=== PATIENT | female | born 1970 | race Caucasian/White ===

== ENCOUNTER 2019-05-21 06:59 | Outpatient (CLI) | payer OTHER, SELFPAY ==
--- NOTE | 2019-05-28 11:43 | SLEEP_ITS ---
Home Sleep Test DATE OF STUDY: 05/21/2019 ORDERING PHYSICIAN: Jason Connell D.O. REASON FOR THE STUDY: Hypersomnia. HISTORY: This patient is a 48-year-old female, 5 feet 7 inches tall, weighing 260 pounds with a body mass index of 40.7. She wakes up frequently at night. This can happen after only 1 or 2 hours of sleep. When she is awake, she will watch television for 4 hours. She has had difficulty with sleeping for over 20 years. There is no family history that she is aware of. She rarely awakens from sleep with short of breath. She occasionally awakens at night with heartburn, belching, or coughing. She does not mention whether or not she snores, but rarely she snores loudly enough that others complain about it. She frequently has trouble sleeping with a cold. She does not gasp for breath at night. She rarely has breathing problems witnessed by others. She rarely sweats excessively at night. She occasionally notices her heart pounding irregularly at night. She constantly falls asleep during the day, never involuntarily, and never while driving. She occasionally falls asleep with laughing or crying. She does not have loss of muscle tone with strong emotion. She rarely has daytime difficulty due to excessive sleepiness, works as a registered behavior nail technician. She does not have paralysis on waking or falling asleep. She does not have vivid dreamlike scenes upon awakening or falling asleep. She is never afraid to go to sleep. She occasionally has nightmares. She occasionally remembers her dreams. She frequently has racing thoughts, feelings of sadness, depression, anxiety, and she frequently has muscular tension. She constantly notices parts of her body jerking. She occasionally kicks at night and has crawly achy feelings in her legs. She does not have morning jaw pain. She occasionally grinds her teeth at night. She frequently is bothered by pain during the day and is awakened with pain at night. She constantly wakes up feeling stiff in the morning with sore achy muscles and neck and spine pain. She has feelings of panic, memory problems, insomnia, concentration difficulties, depression, nightmares, bowel disturbances, and headache. She normally goes to bed at 11 p.m., falling asleep within 10 minutes, waking 3 times at night and will stay awake for 2-3 hours. During this time, she will go to the bathroom or use her phone, sometimes watch television. She wakes in the morning at 6 a.m. She gets an estimated 4 or 5 hours of sleep at night. On the weekends, she stays awake until 0:30 a.m. and will still wake at 6 a.m. She sometimes takes naps. She is not refreshed after a short nap. She is usually drowsy in the morning for 3 hours or longer. MEDICAL COMORBIDITIES: Chest pain, depression, diabetes, GERD. MEDICATIONS: 1. Dulaglutide 0.75 mg per 0.5 mL, 1.5 mg injected subcutaneously weekly. 2. Omeprazole 20 mg daily. 3. Buspirone 7.5 mg b.i.d. 4. Escitalopram 20 mg daily. 5. Glargine insulin per instructions daily. HABITS: Never smoked tobacco. Caffeine 8 cans per day. No alcohol. DESCRIPTION OF THE STUDY: On the [place] Sleepiness Scale, her score is 12, elevated. This test was conducted as an unattended home sleep test using 4 channel system including respiratory effort channel, snoring channel, oxygen saturation channel, and heart rate channel. The study was scored using [facility] guidelines. Duration of the study was 8 hours 6 minutes. The apnea-hypopnea index is 15. Oxygen desaturation index is 15. There were 2 apneas, 1 was obstructive and 1 was central. She had 119 hypopneas. There were 190 snoring events and 120 desaturations. She spent 60 minutes, 12% of the study below 88% saturation. The lowest desaturation was 79%. Her average
== END 2019-05-21 07:00 | disposition home or self-care (01) ==
LOC: ANHCSM 07:00
PROVIDERS: PCP Family Medicine; Visit Provider Internal Medicine Cardiovascular Disease
DX: G47.10 Hypersomnia, unspecified (principal); G47.33 Obstructive sleep apnea (adult) (pediatric); Z68.41 Body mass index [BMI] 40.0-44.9, adult; E11.9 Type 2 diabetes mellitus without complications; F32.9 Major depressive disorder, single episode, unspecified; E78.5 Hyperlipidemia, unspecified; K21.9 Gastro-esophageal reflux disease without esophagitis
CPT/HCPCS: 95806

== ENCOUNTER 2019-07-08 16:20 | Outpatient (CLI) | payer OTHER, SELFPAY ==
--- NOTE | ~2019-07-08 | XR_ITS ---
EXAMINATION: XR ribs BI 3V w CXR 2V INDICATION: Pleurodynia TECHNIQUE: PA and lateral views of the chest and 3 views of the bilateral ribs were obtained. COMPARISON: 12/06/2018 FINDINGS: The lungs are free of acute opacities. There is no pleural effusion or pneumothorax. The ca rdiomediastinal silhouette is normal. Surgical clips in the right upper quadrant are likely from prio r cholecystectomy. There is moderate thoracic spondylosis. No displaced rib fracture is identified. T here is chronic widening of the acromioclavicular joints which could reflect a distal clavicle resect ion. IMPRESSION: 1. No acute cardiopulmonary abnormality or evidence of displaced rib fracture. Reviewed, dictated and finalized at location A.
== END 2019-07-08 16:21 | disposition home or self-care (01) ==
PROVIDERS: PCP Family Medicine; Visit Provider Physician Assistant Medical
DX: R07.81 Pleurodynia (principal)
CPT/HCPCS: 71046; 71110

== ENCOUNTER 2019-07-23 17:37 | Outpatient (CLI) | payer OTHER, SELFPAY ==
--- NOTE | ~2019-07-23 | CT_ITS ---
EXAMINATION: CT abdomen pelvis w con EXAM DATE: 07/23/2019 17:34 INDICATION: Abdominal pain. TECHNIQUE: Spiral CT of the abdomen and pelvis was performed following intravenous injection of 100 m L Omnipaque 350. Axial, coronal and sagittal images were reviewed. The dose-length product (DLP) fo r this examination was 1663.63 mGy-cm. The exposure was tailored according to patient size (auto mA exposure control), and iterative reconstruction (ASIR) was used as additional dose reduction techniqu e. There is no prior study for comparison. FINDINGS: There is hepatic steatosis without suspicious focal lesion identified. Spleen, adrenal glan ds, pancreas are unremarkable. There are cholecystectomy clips. Portal and splenic veins are patent . Kidneys enhance symmetrically. There is no hydronephrosis. Lobular renal contours bilaterally. T he uterus and ovaries are unremarkable, no adnexal mass. The bladder is unremarkable. There is no r etroperitoneal or pelvic lymphadenopathy. The appendix is normal. The stomach and small bowel are unremarkable. There is expected amount of c olonic stool. No free intraperitoneal gas. The heart is normal in size. There are no pericardial or pleural effusions. The lung bases are unremarkable. There are no osteoblastic or osteolytic les ions identified. Chronic L5 bilateral spondylolysis with grade 2 anterolisthesis L5 on S1, moderate t o severe disc disease at this level. IMPRESSION: 1. No acute intra-abdominal findings. 2. Chronic L5 spondylolysis, grade 2 anterolisthesis. 3. Hepatic steatosis. Reviewed, dictated and finalized at location A.
[2019-07-23 17:28] LABS: Estimated Glomerular Filt Rate > 60
[2019-07-23 17:47] LABS: Basophils Absolute Auto 0.1 K/mm3 (0.0-0.1); Basophils Percent Auto 0.7 % (0.2-1.2); Eosinophils Absolute Auto 0.2 K/mm3 (0-0.3); Eosinophils Percent Auto 1.3 % (0-4.4); Hematocrit 44.6 % (37.0-47.0); Hemoglobin 14.9 g/dL (12.0-15.0); Immature Granulocyte Absolute 0.03 K/mm3 (0.00-0.031); Immature Granulocyte Percent A 0.2 % (0-0.5); Lymphocytes Absolute Auto 2.79 K/mm3 (0.9-3.2); Lymphocytes Percent Auto 20.6 % (18.3-44.2); Mean Corpuscular HGB Conc 33.4 g/dl (32-36); Mean Corpuscular Hemoglobin 28.2 pg (26-34); Mean Corpuscular Volume 84.3 fl (80-100); Mean Platelet Volume 12.1 fl (7.4-10.4); Monocytes Absolute Auto 1.1 K/mm3 (0.1-0.6); Monocytes Percent Auto 7.9 % (2.6-8.5); Neutrophils Absolute Auto 9.4 K/mm3 (1.3-6.7); Neutrophils Percent Auto 69.3 % (45.5-73.1); Platelet Count Result 225 k/mm3 (150-375); Red Blood Count 5.29 M/mm3 (4.2-5.4); Red Cell Distribution Width 13.2 % (11.5-14.5); White Blood Count 13.5 K/mm3 (4.5-10.0)
[2019-07-23 18:00] LABS: Alanine Aminotransferase 19 U/L (4-35); Alkaline Phosphatase 121 U/L (38-126); Amylase 45 U/L (30-110); Aspartate Amino Transferase 21 U/L (14-36); Bilirubin,Total 0.6 mg/dL (0.2-1.3); Blood Urea Nitrogen 11 mg/dL (7-17); Calcium 8.7 mg/dL (8.4-10.2); Carbon Dioxide 28 mmol/L (22-30); Chloride 97 mmol/L (98-107); Estimated Glomerular Filt Rate > 60; Glucose 290 mg/dL (65-105); Lipase 40 U/L (23-300); Potassium 3.9 mmol/L (3.4-5.0); Sodium 131 mmol/L (137-145)
== END 2019-07-23 17:38 | disposition home or self-care (01) ==
PROVIDERS: PCP Family Medicine; Visit Provider Nurse Practitioner Family
DX: R10.9 Unspecified abdominal pain (principal); M47.816 Spondylosis without myelopathy or radiculopathy, lumbar region; M43.16 Spondylolisthesis, lumbar region; K76.0 Fatty (change of) liver, not elsewhere classified
CPT/HCPCS: 36415; 74177; 80053; 82150; 83690; 85025; Q9967

== ENCOUNTER 2019-08-06 16:06 | Outpatient (CLI) | payer OTHER, SELFPAY ==
[2019-08-06 17:09] LABS: Blood Urea Nitrogen 10 mg/dL (7-17); Carbon Dioxide 28 mmol/L (22-30); Chloride 98 mmol/L (98-107); Estimated Glomerular Filt Rate > 60; Glucose 298 mg/dL (65-105); Potassium 3.9 mmol/L (3.4-5.0); Sodium 132 mmol/L (137-145)
== END 2019-08-06 16:07 | disposition home or self-care (01) ==
PROVIDERS: PCP Family Medicine; Visit Provider Nurse Practitioner Family
DX: D72.829 Elevated white blood cell count, unspecified (principal); R79.89 Other specified abnormal findings of blood chemistry; E87.1 Hypo-osmolality and hyponatremia
CPT/HCPCS: 36415; 80048

== ENCOUNTER 2019-08-13 15:03 | Outpatient (CLI) | payer OTHER, SELFPAY ==
[2019-08-13 16:19] LABS: Basophils Absolute Auto 0.1 K/mm3 (0.0-0.1); Basophils Percent Auto 1.1 % (0.2-1.2); Eosinophils Absolute Auto 0.2 K/mm3 (0-0.3); Eosinophils Percent Auto 1.7 % (0-4.4); Hematocrit 44.9 % (37.0-47.0); Immature Granulocyte Absolute 0.05 K/mm3 (0.00-0.031); Immature Granulocyte Percent A 0.4 % (0-0.5); Lymphocytes Percent Auto 26.4 % (18.3-44.2); Mean Corpuscular HGB Conc 33.4 g/dl (32-36); Mean Corpuscular Hemoglobin 28.8 pg (26-34); Mean Corpuscular Volume 86.3 fl (80-100); Mean Platelet Volume 12.8 fl (7.4-10.4); Monocytes Percent Auto 8.3 % (2.6-8.5); Neutrophils Absolute Auto 7.1 K/mm3 (1.3-6.7); Neutrophils Percent Auto 62.1 % (45.5-73.1); Platelet Count Result 236 k/mm3 (150-375); Red Cell Distribution Width 13.4 % (11.5-14.5); White Blood Count 11.4 K/mm3 (4.5-10.0)
== END 2019-08-13 15:04 | disposition home or self-care (01) ==
PROVIDERS: PCP Family Medicine; Visit Provider Nurse Practitioner Family
DX: R10.9 Unspecified abdominal pain (principal)
CPT/HCPCS: 36415; 85025

== ENCOUNTER 2019-09-07 00:29 | Outpatient (CLI) | payer OTHER, SELFPAY ==
[2019-09-07 16:19] LABS: SARS-CoV-2 RNA PCR Negative
== END 2019-09-07 00:30 | disposition home or self-care (01) ==
LOC: ANHCOVIDDT 00:30
PROVIDERS: PCP Family Medicine; Visit Provider Internal Medicine Gastroenterology
DX: Z01.818 Encounter for other preprocedural examination (principal); Z11.59 Encounter for screening for other viral diseases
CPT/HCPCS: 87635; C9803; U0003

== ENCOUNTER 2019-09-10 00:59 | Day surgery (SDC) | payer OTHER, SELFPAY ==
[2019-09-06 14:44] VITALS: BMI 42.3
--- NOTE | 2019-09-10 08:19 | WPDANESEPPF ---
Anes - Initial Pre Proc Eval Procedure: Operation Date: 09/10/19 12:30 Proposed Procedures p Esophagogastroduodenoscopy & Screening Colonoscopy - Maikel Schultz MD Date/Time: 09/10/19 08:19 Surgeon: Maikel Schultz MD Pre Op Diagnosis: Nausea & Vomiting Patient Data Age: 48 Gender: F Height: 1.7 m Weight: 122.7 kg Allergies Allergy/AdvReac Type Severity Reaction Status Date / Time No Known Allergies Allergy Verified 08/30/19 13:08 Home Medications Medication Instructions Recorded Confirmed Type insulin glargine 100 unit/mL (3 100 unit SUB-Q DAILY 04/22/19 09/06/19 History mL) subcutaneous pen escitalopram oxalate 20 mg tablet 20 mg PO DAILY #30 tablet 05/20/19 09/06/19 Rx tizanidine 2 mg tablet 2 mg PO TID PRN #14 tablet 07/08/19 09/06/19 Rx omeprazole 20 mg capsule,delayed 20 mg PO DAILY #90 cap 07/21/19 09/06/19 Rx release ondansetron HCl 4 mg tablet 4 mg PO Q8H PRN #30 tablet 07/24/19 09/06/19 Rx bupropion HCl 300 mg 24 hr tablet, 300 mg PO QAM #30 tablet 08/09/19 09/06/19 Rx extended release peg 3350-electrolytes 236 240 ml PO Q10M #4000 ml 09/06/19 Rx gram-22.74 gram-6.74 gram-5.86 gram solution Patient hx anesthesia problems: none Family hx anesthesia problems: none PMFSH Past Medical History Medical History (Updated 09/10/19 @ 08:20 by Anshul Narayan MD) Abdominal pain Anxiety and depression Colon cancer screening Diabetes Gastroesophageal reflux disease Headache Migraine Nausea and vomiting in adult Obesity RADHA (obstructive sleep apnea) Tension type headache Surgical History Surgical History H/O excision of ganglion cyst H/O shoulder surgery History of appendectomy History of tonsillectomy Hx of cholecystectomy Social History Social History Smoking status: Never smoker Alcohol intake: current Gender identity (if verbalized by the patient): Female Anes - Eval Final PreProcedure Day of Procedure 09/10/19 08:19 Patient weight: obese Heart: regular rate and rhythm Lungs: clear to auscultation and normal air movement Airway: Mallampati scale class II Neurological: alert and oriented Last oral intake: >/= 8 hours ASA classification: III Emergent: no Anesthetic plan: proceed Anesthesia type and monitoring: general GIVS Informed Consent: The patient's anesthetic plan and its attendant risks and benefits were discussed with the patient/family/POA. Questions were solicited and answers provided to the satisfaction of the patient/family/POA.
[2019-09-10 11:53] VITALS: BP 125/84; PULSE 101; RESP 16; TEMP 37; O2SAT 97
[2019-09-10] MEDS: LACTATED RINGERS 1,000 ML 150 ML IV CONT (12:10)
[2019-09-10 12:12] LABS: Glucose Point of Care 282 (65-105)
--- NOTE | 2019-09-10 13:17 | WPDHPUPDATE1 ---
History and Physical Update Update Date/Time: 09/10/19 13:17 History and Physical has been reviewed, including an updated exam of the patient. There are NO changes in the patient's condition. Risks, benefits, and alternatives have been discussed and questions answered. Patient agrees to proceed with procedure.
[2019-09-10] MEDS: BENZOCAINE (*SP) 60 ML SPRAY CAN (HURRICAINE) 1 SPRAY MUCOUS MEM (13:32)
--- NOTE | 2019-09-10 13:43 | SUR.OPER ---
[id number] UPDATED FAMILY (KARMEN) TAKING PATIENT TO PROCEDURE ROOM
[2019-09-10 13:57] VITALS: BP 97/64; PULSE 83; RESP 20; O2SAT 95
[2019-09-10 14:07] VITALS: BP 99/64; PULSE 84; RESP 22; O2SAT 95
[2019-09-10 14:07] LABS: Glucose Point of Care 217 (65-105)
[2019-09-10 14:17] VITALS: BP 92/59; PULSE 79; RESP 24; O2SAT 96
== END 2019-09-10 14:35 | disposition home or self-care (01) ==
PROVIDERS: PCP Family Medicine; Visit Provider Internal Medicine Gastroenterology
PROC: 0DJ08ZZ Inspection of Upper Intestinal Tract, Via Natural or Artificial Opening Endoscopic (ICD-10-PCS; CPT 43235; principal; 2019-09-10 12:30)
DX: Z12.11 Encounter for screening for malignant neoplasm of colon (principal); K64.8 Other hemorrhoids; K29.50 Unspecified chronic gastritis without bleeding; E11.9 Type 2 diabetes mellitus without complications; G47.33 Obstructive sleep apnea (adult) (pediatric); F41.8 Other specified anxiety disorders; K21.9 Gastro-esophageal reflux disease without esophagitis; Z79.4 Long term (current) use of insulin; E66.01 Morbid (severe) obesity due to excess calories; Z68.41 Body mass index [BMI] 40.0-44.9, adult
CPT/HCPCS: 45378; 43239; 88305; J2704; J7120

== ENCOUNTER 2019-09-13 11:55 | Outpatient (CLI) | payer OTHER, SELFPAY ==
[2019-09-13 13:33] LABS: Basophils Absolute Auto 0.1 K/mm3 (0.0-0.1); Eosinophils Absolute Auto 0.3 K/mm3 (0-0.3); Eosinophils Percent Auto 2.5 % (0-4.4); Hematocrit 44.8 % (37.0-47.0); Hemoglobin 15.2 g/dL (12.0-15.0); Immature Granulocyte Absolute 0.04 K/mm3 (0.00-0.031); Immature Granulocyte Percent A 0.4 % (0-0.5); Lymphocytes Absolute Auto 3.28 K/mm3 (0.9-3.2); Lymphocytes Percent Auto 31.3 % (18.3-44.2); Mean Corpuscular HGB Conc 33.9 g/dl (32-36); Mean Corpuscular Hemoglobin 28.1 pg (26-34); Mean Platelet Volume 12.6 fl (7.4-10.4); Monocytes Absolute Auto 0.7 K/mm3 (0.1-0.6); Neutrophils Absolute Auto 6.1 K/mm3 (1.3-6.7); Neutrophils Percent Auto 57.8 % (45.5-73.1); Platelet Count Result 250 k/mm3 (150-375); Red Cell Distribution Width 13.2 % (11.5-14.5); White Blood Count 10.5 K/mm3 (4.5-10.0)
== END 2019-09-13 11:56 | disposition home or self-care (01) ==
PROVIDERS: PCP Family Medicine; Visit Provider Nurse Practitioner Family
DX: D72.829 Elevated white blood cell count, unspecified (principal)
CPT/HCPCS: 36415; 85025

== ENCOUNTER 2019-10-03 13:56 | Outpatient (CLI) | payer OTHER, SELFPAY ==
[2019-10-03 14:24] LABS: Basophils Absolute Auto 0.1 K/mm3 (0.0-0.1); Basophils Percent Auto 0.8 % (0.2-1.2); Eosinophils Absolute Auto 0.3 K/mm3 (0-0.3); Eosinophils Percent Auto 2.4 % (0-4.4); Hematocrit 44.9 % (37.0-47.0); Hemoglobin 15.2 g/dL (12.0-15.0); Immature Granulocyte Absolute 0.05 K/mm3 (0.00-0.031); Immature Granulocyte Percent A 0.4 % (0-0.5); Lymphocytes Absolute Auto 3.31 K/mm3 (0.9-3.2); Lymphocytes Percent Auto 29.2 % (18.3-44.2); Mean Corpuscular HGB Conc 33.9 g/dl (32-36); Mean Corpuscular Hemoglobin 28.6 pg (26-34); Mean Corpuscular Volume 84.6 fl (80-100); Mean Platelet Volume 12.4 fl (7.4-10.4); Monocytes Absolute Auto 0.8 K/mm3 (0.1-0.6); Monocytes Percent Auto 7.4 % (2.6-8.5); Neutrophils Absolute Auto 6.8 K/mm3 (1.3-6.7); Neutrophils Percent Auto 59.8 % (45.5-73.1); Platelet Count Result 236 k/mm3 (150-375); Red Blood Count 5.31 M/mm3 (4.2-5.4); Red Cell Distribution Width 13.4 % (11.5-14.5); White Blood Count 11.3 K/mm3 (4.5-10.0)
[2019-10-03 15:06] LABS: Alanine Aminotransferase 23 U/L (4-35); Albumin Level 4.2 g/dL (3.5-5.1); Alkaline Phosphatase 135 U/L (38-126); Aspartate Amino Transferase 26 U/L (14-36); Bilirubin,Total 0.7 mg/dL (0.2-1.3); Blood Urea Nitrogen 17 mg/dL (7-17); Calcium 9.2 mg/dL (8.4-10.2); Carbon Dioxide 26 mmol/L (22-30); Chloride 95 mmol/L (98-107); Estimated Glomerular Filt Rate > 60; Glucose 294 mg/dL (65-105); Sodium 133 mmol/L (137-145)
[2019-10-03 16:00] LABS: Erythrocyte Sedimentation Rate 15 mm/hr (0-20)
== END 2019-10-03 13:57 | disposition home or self-care (01) ==
LOC: ANHLAB 13:57
PROVIDERS: PCP Family Medicine; Visit Provider Internal Medicine Hematology & Oncology
DX: D72.829 Elevated white blood cell count, unspecified (principal)
CPT/HCPCS: 36415; 80053; 85025; 85652; 86140; 88184

== ENCOUNTER 2020-02-18 07:36 | Outpatient (RCR) | payer OTHER, SELFPAY ==
[2020-01-13 12:10] VITALS: BMI 40.8
== END 2020-03-30 14:41 | disposition home or self-care (01) ==
LOC: ANHWOC 07:36
PROVIDERS: PCP Family Medicine; Visit Provider Family Medicine
DX: L03.90 Cellulitis, unspecified (principal); V29.9XXA Motorcycle rider (driver) (passenger) injured in unspecified traffic accident, initial encounter
CPT/HCPCS: 99211; 99212; 99213; G0463

== ENCOUNTER → 2020-04-07 15:34 | Outpatient (CLI) | payer OTHER, SELFPAY ==
--- NOTE | ~2020-04-07 | XR_ITS ---
EXAMINATION:XR_CERV2-3V_CR DATE: 04/07/2020 16:42 INDICATION: Neck pain TECHNIQUE: AP, lateral, lateral swimmers and odontoid views of the cervical spine are provided. COMPARISON: None FINDINGS: There is 1 mm of anterolisthesis of C5 on C6. The odontoid is intact. No fracture is identi fied. The vertebral body heights are normal. There is mild loss of intervertebral disc space height a t C6-7 and C7-T1. Small degenerative osteophytes project from the anterior endplates of multiple vert ebral bodies. Prevertebral soft tissues are normal. IMPRESSION: 1. Mild cervical spondylosis without acute findings. Reviewed, dictated and finalized at location A. LOGIST
--- NOTE | ~2020-04-07 | XR_ITS ---
EXAMINATION: XR shoulder RT min 2V DATE: 04/07/2020 16:42 INDICATION: Right shoulder pain. TECHNIQUE: 4 views of right shoulder were obtained. COMPARISON: Chest 2 views 03/23/2015 FINDINGS: There are changes of distal right clavicle resection. Bone alignment is normal. No fracture . The glenohumeral joint is normal. IMPRESSION: 1. No etiology for the patient's symptoms. Reviewed, dictated and finalized at location B. DOWN
== END ==
PROVIDERS: PCP Family Medicine; Visit Provider Nurse Practitioner Family
DX: M25.511 Pain in right shoulder (principal); M47.892 Other spondylosis, cervical region
CPT/HCPCS: 72040; 73030

== ENCOUNTER 2020-04-16 14:38 | Outpatient (CLI) | payer OTHER, SELFPAY ==
[2020-04-16 14:53] LABS: Basophils Absolute Auto 0.1 K/mm3 (0.0-0.1); Eosinophils Absolute Auto 0.2 K/mm3 (0-0.3); Eosinophils Percent Auto 2.2 % (0-4.4); Hematocrit 47.9 % (37.0-47.0); Hemoglobin 15.8 g/dL (12.0-15.0); Immature Granulocyte Absolute 0.04 K/mm3 (0.00-0.031); Immature Granulocyte Percent A 0.4 % (0-0.5); Lymphocytes Absolute Auto 2.98 K/mm3 (0.9-3.2); Lymphocytes Percent Auto 30.5 % (18.3-44.2); Mean Corpuscular Hemoglobin 26.8 pg (26-34); Mean Corpuscular Volume 81.2 fl (80-100); Mean Platelet Volume 12.2 fl (7.4-10.4); Monocytes Absolute Auto 0.7 K/mm3 (0.1-0.6); Monocytes Percent Auto 6.8 % (2.6-8.5); Neutrophils Absolute Auto 5.8 K/mm3 (1.3-6.7); Neutrophils Percent Auto 59.1 % (45.5-73.1); Platelet Count Result 249 k/mm3 (150-375); Red Cell Distribution Width 13.8 % (11.5-14.5); White Blood Count 9.8 K/mm3 (4.5-10.0)
== END 2020-04-16 14:39 | disposition home or self-care (01) ==
LOC: ANHLAB 14:39
PROVIDERS: PCP Family Medicine; Visit Provider Internal Medicine Hematology & Oncology
DX: D72.829 Elevated white blood cell count, unspecified (principal)
CPT/HCPCS: 36415; 85025

== ENCOUNTER → 2020-04-25 07:26 | Outpatient (CLI) | payer OTHER, SELFPAY ==
[2020-04-25 16:04] LABS: Influenza Control Positive
[2020-04-26 00:17] LABS: SARS-CoV-2 RNA PCR Positive
== END ==
PROVIDERS: PCP Family Medicine; Visit Provider Nurse Practitioner Family
DX: U07.1 COVID-19 (principal); J06.9 Acute upper respiratory infection, unspecified
CPT/HCPCS: 87804; C9803; U0003; U0005

== ENCOUNTER → 2020-07-23 15:33 | Outpatient (CLI) | payer OTHER, SELFPAY ==
--- NOTE | ~2020-07-23 | XR_ITS ---
EXAMINATION: XR shoulder RT min 2V DATE: 07/23/2020 16:19 INDICATION: Right shoulder pain. TECHNIQUE: 4 views of right shoulder were obtained. COMPARISON: Right shoulder radiographs 04/07/2020 FINDINGS: Bone alignment is normal. There is an oblique fracture of the base of the acromion with 5 m m distraction. There are changes of distal clavicle resection. Glenohumeral joint is normal. IMPRESSION: 1. Oblique fracture of the base of the acromion. Reviewed, dictated and finalized at location A.
== END ==
PROVIDERS: Visit Provider Nurse Practitioner Family
DX: S42.121D Displaced fracture of acromial process, right shoulder, subsequent encounter for fracture with routine healing (principal); X58.XXXD Exposure to other specified factors, subsequent encounter
CPT/HCPCS: 73030

== ENCOUNTER 2021-04-28 07:48 | Outpatient (CLI) | payer OTHER, SELFPAY ==
--- NOTE | 2021-05-03 12:57 | WPDSLEEPSTUD ---
Sleep Study Date of Study: 04/28/21 Ordering Provider: Jaci Swann MD Interpreting Physician: Jaci Swann MD Sleep Study Type: Split Polysomnogram Height: 1.7 m Weight: 131.542 kg Body Mass Index: 45.4 Neck Circumference (inches): 16.5 [place]: 11 Reason for Sleep Study Known RADHA, persistent excessive daytime sleepiness, abnormal overnight oximetry; oxygen desaturation index 36 overnight oximetry; she presents for a repeat titration. * HST 05/21/19 moderate obstructive sleep apnea with deep sustained desaturation to 79%, frequent snoring, and 1 hour spent below 88% saturation. Sleep History Ruby Murray is a 50 year old female with obstructive sleep apnea syndrome who has been using APAP 8-20 cm. She switch insurance companies, and has had problems getting a comfortable mask, has tried a nasal nasal mask and Alexander her 's fullface mask. and time she has days of very poor sleep. She does not awaken from sleep feeling short of breath. She occasionally wakes at night with heartburn, belching or coughing. She occasionally snores and rarely is loud enough that others complain about it. She frequently has trouble sleeping with a cold. She rarely wakes up gasping for breath at night. She frequently has breathing problems at night observed by others. She occasionally sweats excessively at night and occasionally notices her heart pounding or beating irregularly at night. She frequently falls asleep during the day, occasionally involuntarily but never while driving. She never loses muscle tone with strong emotion. She does not have daytime difficulties due to excessive sleepiness. She does not feel paralyzed on waking or falling asleep. She rarely has vivid dreamlike scenes upon awakening or falling asleep. She does not feel afraid to go to sleep. She rarely has nightmares, rarely remembers her dreams. She frequently has racing thoughts. She occasionally feels sad depressed. She frequently has anxiety and muscular tension. She frequently notices parts of her body jerking. She occasionally kicks at night. She rarely has crawling and aching feelings in her legs. She occasionally has leg pain at night. She does not have morning jaw pain. She rarely grinds her teeth at night. She frequently is bothered by pain during the day and frequently awakened by pain at night. She frequently wakes up feeling stiff in the morning with sore achy muscles and pain in neck and spine. Normal bedtime is 1:00 a.m. taking 10 minutes to fall asleep typically in the recliner. She looks the phone until she gets very tired. She wakes 2 or 3 times during the night. She estimates getting 3-4 hours of sleep per night. She wakes the morning at 9:00 a.m.. On the weekends her schedule is similar waking up a little later at 10:00 a.m.. When she wakes at night she may stay stay awake for a few hours at a time. pain in her shoulder keeps her awake. She naps during the day. Short naps are not refreshing. She is drowsy after waking for an hour or longer. She feels better in the evening compared to earlier in the day. Habits: No tobacco. Caffeine 8 cans a day. No alcohol or recreational drugs. PMFSH Past Medical History Medical History Abdominal pain Anxiety and depression BMI 45.0-49.9, adult Colon cancer screening Diabetes Fracture of acromial end of right clavicle Gastroesophageal reflux disease Headache Migraine Morbidly obese Nausea and vomiting in adult Obesity RADHA (obstructive sleep apnea) Tension type headache Surgical History Surgical History H/O excision of ganglion cyst H/O shoulder surgery History of appendectomy History of tonsillectomy Hx of cholecystectomy Family History Family History Father Cerebrovascular accident Diabetes mellitus Hypertension Atr
[2021-05-03 15:12] VITALS: BMI 45.4
== END 2021-04-29 07:51 | disposition home or self-care (01) ==
LOC: ANHCSM 07:48
PROVIDERS: PCP Family Medicine; Visit Provider Internal Medicine Critical Care Medicine
DX: G47.33 Obstructive sleep apnea (adult) (pediatric) (principal)
CPT/HCPCS: 95811

== ENCOUNTER 2021-08-03 16:19 | Outpatient (CLI) | payer OTHER, SELFPAY ==
--- NOTE | ~2021-08-03 | XR_ITS ---
XR chest 2V 08/03/2021 16:37 Indication: Cough. Procedure: 2 view chest Comparison: Comparison to multiple prior studies sequentially, with oldest reviewed study dated 06/2015. Findings: Heart size normal. No focal air space disease, pulmonary edema, pleural effusion or suspect ed pneumothorax. No acute osseous abnormality. There are surgical changes of the right shoulder, part ially visualized. Impression: 1: No acute cardiopulmonary disease. Reviewed, dictated and finalized at location A. Impression: 1: No acute cardiopulmonary disease.
== END 2021-08-03 16:20 | disposition home or self-care (01) ==
PROVIDERS: PCP Family Medicine; Visit Provider Nurse Practitioner Family
DX: R05.9 Cough, unspecified (principal)
CPT/HCPCS: 71046

== ENCOUNTER → 2021-08-13 08:34 | Outpatient (CLI) | payer OTHER, SELFPAY ==
--- NOTE | ~2021-08-13 | XR_ITS ---
EXAMINATION: XR knee RT 2V DATE: 08/13/2021 08:47 INDICATION: Right knee pain. TECHNIQUE: 2 views of right knee standing were obtained. COMPARISON: None. FINDINGS: Bone alignment is normal. No fracture. There is mild tricompartmental osteoarthritis charac terized by marginal osteophytes. No joint space narrowing. No knee joint effusion. IMPRESSION: 1. Mild right knee osteoarthritis. Reviewed, dictated and finalized at location A.
== END ==
PROVIDERS: PCP Family Medicine; Visit Provider Nurse Practitioner Family
DX: M17.11 Unilateral primary osteoarthritis, right knee (principal)
CPT/HCPCS: 73560

== ENCOUNTER 2021-09-16 12:16 | Outpatient (CLI) | payer OTHER, SELFPAY ==
--- NOTE | 2021-09-17 13:36 | WPDPFTINT ---
PFT Procedure Performed PFT Procedure Performed Spirometry with Pre/Post Bronchodilator Plethysmography (Lung Vol) Diffusing Cap (DLCO) Flow Vol Loop PFT Interpretation This is a pulmonary function test with pre and post-bronchodilator spirometry, plethysmography and diffusing capacity. The test was performed and results interpreted in accordance with the 2019 and 2005 ATS/ERS Task Force guidelines respectively using the Global Lung Function Initiative-2012 reference equations. Patient demonstrated good effort and cooperation. Reproducibility criteria were met. The quality of the pre bronchodilator spirometry maneuver was Grade A and post bronchodilator spirometry maneuver was Grade A. Findings: Spirometry: The contour the inspiratory and expiratory flow tracing are normal. The pre bronchodilator FVC is 2.91 L, 77% of% predicted. The pre bronchodilator FEV1 is 2.47 L, 83% predicted. The pre bronchodilator FEV1: FVC ratio was 85%. The post bronchodilator FVC is 2.81 L, representing a 4% decrease. The post bronchodilator FEV1 is 2.46 L, representing no change. The post bronchodilator FEV1: FVC ratio was 88%. Plethysmography: The total lung capacity is 4.50 L, 82% predicted. The functional residual capacity is 1.12 L, 36% predicted. The residual volume is 1.10 L, 56% predicted. Diffusion capacity: The diffusing capacity unadjusted for hemogloin and carboxyhemoglobin is 20.4, 86% predicted. The diffusing capacity adjusted for alveolar volume is 4.79, 108% predicted. Impression: The spirometry is normal without evidence of an obstructive abnormality. There is no significant improvement after inhaling a single dose of albuterol. The total lung capacity is normal with a decreased functional residual capacity and residual volume. This is an abnormal but nonspecific lung volume pattern. The diffusing capacity is normal. There are no prior studies for comparison
== END 2021-09-16 12:17 | disposition home or self-care (01) ==
PROVIDERS: PCP Family Medicine; Visit Provider Nurse Practitioner Family
DX: R05.3 Chronic cough (principal); R06.00 Dyspnea, unspecified
CPT/HCPCS: 94060; 94726; 94729

== ENCOUNTER 2021-10-07 08:11 | Outpatient (CLI) | payer OTHER, SELFPAY ==
--- NOTE | ~2021-10-07 | US_ITS ---
EXAMINATION:US venous doppler LE BI INDICATION:Left leg swelling TECHNIQUE: Multiple grayscale, color flow and Doppler images of the right and left lower extremity de ep venous systems were obtained and reviewed. COMPARISON:No prior studies for comparison. FINDINGS: The common femoral, superficial femoral and popliteal veins demonstrate normal respiratory variation, augmentation and compressibility. Color flow is also seen within the posterior tibial, pe roneal, greater saphenous and profunda veins. IMPRESSION: 1: No lower extremity deep venous thrombosis. Reviewed, dictated and finalized at location L.
== END 2021-10-07 08:12 | disposition home or self-care (01) ==
PROVIDERS: PCP Family Medicine; Visit Provider Nurse Practitioner Family
DX: R60.0 Localized edema (principal)
CPT/HCPCS: 93970

== ENCOUNTER 2021-10-12 07:51 | Outpatient (CLI) | payer OTHER, SELFPAY ==
--- NOTE | ~2021-10-12 | XR_ITS ---
MODIFIED ESOPHAGRAM HISTORY: Dysphagia. TECHNIQUE: Modified barium esophagram was performed on 10/12/2021. I administered fluoroscopy and perf ormed the exam with speech pathologist. Patient was seated for lateral fluoroscopic imaging for blair stion of thin liquids, pudding, solids and quantified amounts, followed by thin liquids in uncontroll ed amounts. This was recorded on tape. A single fluoroscopic spot image was also recorded. The DAP fo r this procedure was 1.382 Gycm2. The amount of fluoroscopy time used during this procedure was 1.6 m inutes. FINDINGS: Oral stage: Adequate function. Pharyngeal stage: Adequate function. Cervical/esophageal stage: Adequate function. IMPRESSION: Patient tolerated regular consistency oral feedings in the upright position. Please kenya elate with speech pathologist findings and specific feeding recommendations. Reviewed, dictated and finalized at location A. IMPRESSION: Patient tolerated regular consistency oral feedings in the upright position. Please correlate with speech pathologist findings and specific feedi ng recommendations.
--- NOTE | 2021-10-14 09:45 | STOPEVAL ---
MODIFIED BARIUM SWALLOW EVALUATION: (completed 10/12/21) Thank you for referring Ruby Murray to [facility].? Attending Provider: LUZ MARIA Camacho fax #[phone] Modified Barium Swallow Evaluation Recent Swallowing History Reports Dysphagia Yes: chronic cough & nasal regurgitation Onset of Dysphagia 1 year History of Dysphagia No Reported Difficult Consistencies Unable to Identify Intake Method Prior to Swallow Oral Evaluation Diet Prior to Swallow Evaluation Regular, Level 7 Liquid Consistency Prior to Swallow Thin (0) Evaluation Consistency Solid Consistency Method of Presentation Spoon Oral Preparatory Symptoms None Oral Phase Symptoms None Pharyngeal Phase Symptoms None Severity of Vallecular Residue None - 0% No Residue Severity of Pyriform Sinus Residue None - 0% No Residue Cervical/Esophageal Symptoms None Mixed Consistency Method of Presentation Spoon Oral Preparatory Symptoms None Oral Phase Symptoms None Pharyngeal Phase Symptoms None Severity of Vallecular Residue None - 0% No Residue Severity of Pyriform Sinus Residue None - 0% No Residue 8 Point Laryngeal Penetration-Aspiration Material Does Not Enter Airway Scale Cervical/Esophageal Symptoms None Pureed Consistency Method of Presentation Spoon Oral Preparatory Symptoms None Oral Phase Symptoms None Pharyngeal Phase Symptoms None Severity of Vallecular Residue None - 0% No Residue Severity of Pyriform Sinus Residue None - 0% No Residue 8 Point Laryngeal Penetration-Aspiration Material Does Not Enter Airway Scale Cervical/Esophageal Symptoms None Thin Uncontrolled 2 Method of Presentation Straw Oral Preparatory Symptoms None Oral Phase Symptoms None Pharyngeal Phase Symptoms None Severity of Vallecular Residue None - 0% No Residue Severity of Pyriform Sinus Residue None - 0% No Residue 8 Point Laryngeal Penetration-Aspiration Material Does Not Enter Airway Scale Cervical/Esophageal Symptoms None Thin Uncontrolled 1 Method of Presentation Cup Oral Preparatory Symptoms None Oral Phase Symptoms None Pharyngeal Phase Symptoms None Severity of Vallecular Residue None - 0% No Residue Severity of Pyriform Sinus Residue None - 0% No Residue 8 Point Laryngeal Penetration-Aspiration Material Does Not Enter Airway Scale Cervical/Esophageal Symptoms None Thin 5 mL Method of Presentation Spoon Oral Preparatory Symptoms None Oral Phase Symptoms None Pharyngeal Phase Symptoms None Severity of Vallecular Residue None - 0% No Residue Severity of Pyriform Sinus Residue None - 0% No Re
== END 2021-10-12 07:52 | disposition home or self-care (01) ==
PROVIDERS: PCP Family Medicine; Visit Provider Physician Assistant
DX: R06.00 Dyspnea, unspecified (principal); R05.9 Cough, unspecified
CPT/HCPCS: 92611

== ENCOUNTER 2021-10-16 08:30 | Outpatient (CLI) | payer OTHER, SELFPAY ==
--- NOTE | 2021-10-16 08:35 | ECHO_ITS ---
Patient Info Name: Ruby Murray Age: 51 years : 1970 Gender: Female Ht: 67 in Wt: 305 lbs BSA: 2.63 m2 HR: 81 bpm BP: 112 / 69 mmHg Technical Quality: Poor Exam Date: 10/16/2021 8:54 AM Exam Location: [facility] Patient Status: Outpatient Admit Date: 10/16/2021 Staff Ordering Physician: Nathaniel Troncoso NP Bursar: Cassandra Estrella RDCS Attending Provider: Nathaniel Troncoso NP Referring Physician: Aba BURNS; Exam Type: CA echo dop color flow w con Study Info Indications - MERA Complete two-dimensional, color flow and Doppler transthoracic echocardiogram is performed with contrast to opacify the left ventricle and to improve the deliniation of the left ventricle endocardial borders. Contrast/Agitated Saline Contrast/Ag. Saline: Definity Amount: 2.00 ml Administered By: Cassandra Estrella [facility] Existing IV Access: No New IV Access: Dorsum of Hand and Left Site Condition: IV removed Reason for Poor Study: patient body habitus Summary 1. Left ventricular chamber dimension is normal. 2. Definity contrast administered improved wall motion interpretation. 3. Left ventricular systolic function is normal, estimated at 60-65%. 4. The left ventricular diastolic function is grade I diastolic dysfunction. 5. No pulmonary hypertension, estimated pulmonary arterial systolic pressure is 24 mmHg. Left Ventricle Definity contrast administered improved wall motion interpretation. Tissue doppler E/e' is not calculated. Left ventricular chamber dimension is normal. Left ventricular systolic function is normal, estimated at 60-65%. The left ventricular diastolic function is grade I diastolic dysfunction. Right Ventricle Right ventricular chamber dimension is normal. Right ventricular systolic function is normal. Left Atria Left atrial chamber dimension is normal. Right Atria Right atrial chamber dimension is normal. Aortic Valve The aortic valve is trileaflet. There is no aortic valve stenosis. There is no aortic valve regurgitation. Pulmonic Valve There is no pulmonic regurgitation. Mitral Valve There is no mitral valve stenosis. There is no mitral valve regurgitation. Tricuspid Valve There is no tricuspid valve regurgitation. No pulmonary hypertension, estimated pulmonary arterial systolic pressure is 24 mmHg. Pericardium/Pleural There is no pericardial effusion. Inferior Vena Cava Normal inferior vena cava with >50% collapse upon inspiration consistent with normal right atrial pressure, 5 mmHg. Aorta The aortic root size at the sinus of Valsalva is normal. Left Ventricular Outflow Tract Name Value Normal LVOT 2D LVOT Diameter 1.99 cm LVOT Doppler LVOT Peak Gradient 5 mmHg LVOT Mean Gradient 3 mmHg LVOT VTI 19.60 cm LVOT VTI/AV VTI Ratio 0.88 LVOT Stroke Volume 61.07 ml LVOT CO 15.28 l/min LVOT CI
[2021-10-16] MEDS: PERFLUTREN LIPID MICROSPHERES 1.5 ML VIAL DILUTED TO 10 ML TOTAL VOLUME IV PUSH (08:45)
== END 2021-10-16 08:31 | disposition home or self-care (01) ==
LOC: ANHCARD 08:32
PROVIDERS: PCP Family Medicine; Visit Provider Nurse Practitioner Family
DX: R60.0 Localized edema (principal); R07.9 Chest pain, unspecified; R06.00 Dyspnea, unspecified; R05.3 Chronic cough
CPT/HCPCS: C8929; Q9957

== ENCOUNTER 2021-10-17 10:50 | Outpatient (CLI) | payer OTHER, SELFPAY ==
--- NOTE | ~2021-10-17 | CT_ITS ---
EXAMINATION: CT diagnostic chest wo con DATE: 10/17/2021 11:16 INDICATION: Cough. Prior Covid infection. TECHNIQUE: Computed tomography (CT) of the chest was performed without intravenous contrast. Automate d exposure control and iterative reconstruction technique were employed. Exam dose: 1029.03 mGy-cm t otal exam DLP. COMPARISON: 08/03/2021 PA and lateral chest /07/2019 CT abdomen pelvis FINDINGS: No pulmonary infiltrate or consolidation or pulmonary mass lesion is detected. Superior segment left lower lobe calcified pulmonary granuloma and left hilar calcified nodes, consis tent with old granulomatous disease. Normal heart size. No pericardial or pleural effusion. No hilar or mediastinal mass lesion or lymphadenopathy is detected. Diffuse hepatic steatosis. Status post cholecystectomy. No adrenal mass lesion is noted. There is a likely persistent lobation at the upper pole left kidney, not significant change sin ce 07/23/2019 CT abdomen pelvis examination. Old healed left third rib fracture Diffuse idiopathic skeletal hyperostosis. Plate and screws of right scapula. IMPRESSION: No pulmonary infiltrate or consolidation Hepatic steatosis Status post cholecystectomy Reviewed, dictated and finalized at Location [facility]. Reviewed, dictated and finalized at location B.
== END 2021-10-17 10:51 | disposition home or self-care (01) ==
PROVIDERS: PCP Family Medicine; Visit Provider Physician Assistant
DX: R06.00 Dyspnea, unspecified (principal); R05.9 Cough, unspecified; K76.0 Fatty (change of) liver, not elsewhere classified; Z90.49 Acquired absence of other specified parts of digestive tract
CPT/HCPCS: 71250

== ENCOUNTER → 2021-11-24 11:09 | Outpatient (CLI) | payer OTHER, SELFPAY ==
--- NOTE | ~2021-11-24 | MM_ITS ---
EXAMINATION: MM screening mildred BI w karl HISTORY: Screening mammogram TECHNIQUE: Craniocaudal and mediolateral oblique 3-D tomosynthesis images were obtained and synthetic 2-D images were generated. CAD analysis was submitted and interpreted. COMPARISON: No prior mammogram is available for comparison at this institution. BREAST PARENCHYMAL COMPOSITION: There are scattered areas of fibroglandular density. FINDINGS: There is no evidence of suspicious mass, calcification, or architectural distortion to sugg est malignancy in either breast. There has been no suspicious interval change. IMPRESSION: 1. No mammographic evidence of malignancy. 2. Recommend routine screening mammography in one year. BIRADS Category 1: Negative Reviewed, dictated and finalized at location A.
== END ==
PROVIDERS: PCP Nurse Practitioner Family; Visit Provider Nurse Practitioner Family
DX: Z12.31 Encounter for screening mammogram for malignant neoplasm of breast (principal)
CPT/HCPCS: 77063; 77067

== ENCOUNTER 2021-12-21 08:01 | Outpatient (CLI) | payer OTHER, SELFPAY ==
--- NOTE | ~2021-12-21 | NM_ITS ---
EXAMINATION: NM cristobal stress w perfusion DATE: 12/21/2021 13:21 INDICATION: Chest pain TECHNIQUE: Rest images were obtained following intravenous administration of 10.8 mCi Tc99m tetrofosm in (Myoview). The patient was infused intravenously with Lexiscan (Regadenoson). Then, 33.8 mCi Tc99m tetrofosmin (Myoview) was administered intravenously, and stress images were obtained in supine posi tion. Repeat post stress images were obtained in the prone position. Data was reconstructed into shor t axis and horizontal and vertical long axis SPECT images. Gated SPECT images were also obtained. COMPARISON: None. FINDINGS: There is decreased activity along the anterior wall on the rest images as well as along por tions of the apical wall of the supine stress images the majority of which normalizes with prone imag ing. There is a residual small region of mild decreased perfusion at the mid anterior wall on the pro ne imaging which was not evident at this location on the supine post stress images suggesting is also artifactual. No definitive perfusion defects to suggest ischemia or infarct. There is normal left ve ntricular chamber size, wall motion and ejection fraction. Left ventricular ejection fraction measur es >70%. IMPRESSION: 1. Normal myocardial perfusion at rest and during stress. 2. Left ventricular ejection fraction measuring >70%. Reviewed, dictated and finalized at location A.
--- NOTE | 2021-12-21 08:37 | EST_ITS ---
Patient Info Name: Ruby Murray Age: 51 years : 1970 Gender: Female Ht: 67 in Wt: 300 lbs BSA: 2.61 m2 Exam Date: 12/21/2021 9:17 AM Exam Location: [facility] Stress Patient Status: Outpatient Admit Date: 12/21/2021 Staff Ordering Physician: Jason Connell DO Attending Provider: Jason Connell DO Exercise Technologist: Marcio Grady RDCS, RT Exercise Physician: Jason Connell DO Exam Type: CA stress cristobal w NM Study Info A regadenoson stress test was performed. Summary 1. 1. Negative lexiscan stress test for ischemic ST changes by ECG criteria. 2. 2. Stable hemodynamics throughout the test. 3. 3. Nuclear scan to follow and will be reported separately. Please correlate with it. 4. 4. Patient informed of the above results. Protocol: Lexiscan Stress ECG Details Stage: REST Duration (min): 3 min : 39 sec HR (bpm): 70 SBP (mmHg): 113 DBP (mmHg): 69 Stage: REST Duration (min): 7 min : 54 sec HR (bpm): 72 SBP (mmHg): 113 DBP (mmHg): 69 Stage: STAGE 1 Duration (min): 1 min : 0 sec HR (bpm): 95 SBP (mmHg): 131 DBP (mmHg): 54 Stage: RECOVERY Duration (min): 1 min : 0 sec HR (bpm): 90 SBP (mmHg): 131 DBP (mmHg): 54 Stage: RECOVERY Duration (min): 2 min : 0 sec HR (bpm): 91 SBP (mmHg): 131 DBP (mmHg): 54 Stage: RECOVERY Duration (min): 3 min : 0 sec HR (bpm): 87 SBP (mmHg): 135 DBP (mmHg): 64 Stage: RECOVERY Duration (min): 3 min : 47 sec HR (bpm): 88 SBP (mmHg): 135 DBP (mmHg): 64 Rest HR: 72 bpm Peak HR: 96 bpm Rest Sys BP: 113 mmHg Peak Sys BP: 135 mmHg Max Pred HR: 167 bpm % Max Pred HR: 57 % Target HR: 142 bpm Max RPP: 12,960 bpm*mmHg Termination Reason: Completed protocol Cardiac Symptoms: Shortness of breath Total Time: 1 min : 0 sec Rest Voss BP: 69 mmHg Peak Voss BP: 64 mmHg Total Dose: 0.4 mg Resting ECG Sinus rhythm, low voltage- diffuse leads. Stress ECG No ST changes. Arrhythmias None. Report Signatures
== END 2021-12-21 08:02 | disposition home or self-care (01) ==
PROVIDERS: PCP Nurse Practitioner Family; Visit Provider Internal Medicine Cardiovascular Disease
DX: R07.9 Chest pain, unspecified (principal)
CPT/HCPCS: 78452; 93017; A9502; J2785

== ENCOUNTER 2022-02-22 09:59 | Outpatient (CLI) | payer OTHER, SELFPAY ==
--- NOTE | ~2022-02-22 | XR_ITS ---
EXAMINATION: UGI AIR CONTRAST W/ ESOPHAGRAM DATE: 06/01/07 09:43:00 INDICATION: Difficulty swallowing. Patient with nausea and weight loss. TECHNIQUE: Thick barium contrast with and without gas effervescent crystals were administered orally. Fluoroscopic images of the esophagus, stomach, and proximal duodenum were obtained in various proje ctions. The hypopharynx was also imaged. Thereafter, overhead images of the thoracic esophagus and ab domen were performed. 47 images. 0.9 minutes of fluoroscopy. FINDINGS: The esophagus is normal in caliber, without mucosal lesions or strictures. There is normal esophagea l peristalsis. There is no hiatal hernia. Gastroesophageal reflux is demonstrated during the examina tion. The hypopharynx is normal. The gastric folds are normal. The proximal duodenum is also normal in appearance. IMPRESSION: 1. Gastroesophageal reflux. Reviewed, dictated and finalized at location A. CCO HANGER IMPRESSION: 1. Gastroesophageal reflux.
== END 2022-02-22 10:00 | disposition home or self-care (01) ==
LOC: ANHIMG 10:01
PROVIDERS: PCP Family Medicine; Visit Provider Nurse Practitioner
DX: K21.9 Gastro-esophageal reflux disease without esophagitis (principal); K44.9 Diaphragmatic hernia without obstruction or gangrene
CPT/HCPCS: 74246

== ENCOUNTER 2022-07-20 14:33 | Outpatient (CLI) | payer OTHER, SELFPAY ==
--- NOTE | ~2022-07-20 | XR_ITS ---
EXAMINATION: XR hip LT min 2V DATE: 07/20/2022 14:52 INDICATION: Left hip pain. TECHNIQUE: 2 views of left hip were obtained. COMPARISON: None. FINDINGS: Bone alignment is normal. No fracture. There is mild left hip osteoarthritis. IMPRESSION: 1. Mild left hip osteoarthritis. Reviewed, dictated and finalized at location A.
== END 2022-07-20 14:34 ==
PROVIDERS: PCP Family Medicine; Visit Provider Nurse Practitioner Family
DX: M16.12 Unilateral primary osteoarthritis, left hip (principal)
CPT/HCPCS: 73502

== ENCOUNTER 2023-11-04 09:41 | Outpatient (CLI) | payer OTHER, SELFPAY ==
--- NOTE | ~2023-11-04 | MR_ITS ---
EXAMINATION: MR cervical spine wo con DATE: 11/04/2023 10:27 INDICATION: Cervicalgia with chronic neck pain TECHNIQUE: Magnetic resonance imaging (MRI) of the cervical spine was performed without intravenous c ontrast. Sequences included sagittal T2-weighted FSE, sagittal T2-weighted FS FSE, sagittal T1-weight ed FSE, axial MERGE and axial T2-weighted FSE. COMPARISON: None FINDINGS: Mild reversal of the normal lordosis in the lower cervical spine. Vertebral body heights are normal. Bone marrow signal intensity is normal. Moderate disc height loss at C7 T1-2 and mild disc height l oss at C5-6, C6-C7, T2-T3 and T3-T4. Cord signal intensity is normal. Cervical soft tissues are unrem arkable. The following disc levels are specifically discussed: C2-C3: The disc does not extend beyond the endplate margin. There is no uncovertebral joint osteoarth ritis. There is mild bilateral facet joint osteoarthritis. There is no neural foraminal stenosis. The re is no central canal stenosis. C3-C4: The disc does not extend beyond the endplate margin. There is mild bilateral uncovertebral rubi nt osteoarthritis. There is mild right and mild to moderate left facet joint osteoarthritis. There is no neural foraminal stenosis. There is no central canal stenosis. C4-C5: The disc does not extend beyond the endplate margin. There is mild left uncovertebral joint os teoarthritis. There is mild bilateral facet joint osteoarthritis. There is no neural foraminal stenos is. There is no central canal stenosis. C5-C6: The disc does not extend beyond the endplate margin. There is mild left uncovertebral joint os teoarthritis. There is mild right facet joint osteoarthritis. There is no neural foraminal stenosis. There is no central canal stenosis. C6-C7: The disc does not extend beyond the endplate margin. There is mild bilateral uncovertebral rubi nt osteoarthritis. There is mild bilateral facet joint osteoarthritis. There is mild right neural for aminal stenosis. There is no central canal stenosis. C7-T1: Annular fissure and prominent left paracentral disc protrusion which indents the left ventral surface of the cord. There is mild bilateral uncovertebral joint osteoarthritis. There is mild left a nd minimal right facet joint osteoarthritis. There is no neural foraminal stenosis. There is mild deedee tral canal stenosis. IMPRESSION: 1. Moderate spondylosis of the cervicothoracic junction with mild spondylosis in the adjacent lower c ervical and upper lumbar spine. Reviewed, dictated and finalized at location A. IMPRESSION: 1. Moderate spondylosis of the cervicothoracic junction with mild spondylosis i n the adjacent lower cervical and upper lumbar spine.
== END 2023-11-04 09:42 ==
LOC: MICIMG 09:42
PROVIDERS: PCP Family Medicine; Visit Provider Nurse Practitioner Family
DX: M43.03 Spondylolysis, cervicothoracic region (principal); G89.29 Other chronic pain
CPT/HCPCS: 72141

== ENCOUNTER 2023-11-16 12:45 | Outpatient (CLI) | payer OTHER, SELFPAY ==
[2023-11-16 13:01] LABS: Basophils Absolute Auto 0.1 K/mm3 (0.0-0.1); Basophils Percent Auto 0.8 % (0.2-1.2); Eosinophils Absolute Auto 0.3 K/mm3 (0-0.3); Eosinophils Percent Auto 2.5 % (0-4.4); Hematocrit 49.3 % (37.0-47.0); Hemoglobin 15.9 g/dL (12.0-15.0); Immature Granulocyte Absolute 0.07 K/mm3 (0.00-0.031); Immature Granulocyte Percent A 0.5 % (0-0.5); Lymphocytes Absolute Auto 3.49 K/mm3 (0.9-3.2); Lymphocytes Percent Auto 26.8 % (18.3-44.2); Mean Corpuscular HGB Conc 32.3 g/dl (32-36); Mean Corpuscular Hemoglobin 27.4 pg (26-34); Mean Platelet Volume 11.9 fl (7.4-10.4); Monocytes Percent Auto 7.9 % (2.6-8.5); Neutrophils Percent Auto 61.5 % (45.5-73.1); Platelet Count Result 255 k/mm3 (150-375); Red Cell Distribution Width 15.5 % (11.5-14.5)
[2023-11-16 13:08] LABS: Blood Urea Nitrogen 19 mg/dL (8-26); Carbon Dioxide 30 mmol/L (22-30); Chloride 99 mmol/L (98-109); Estimated Glomerular Filt Rate > 60; Glucose 125 mg/dL (70-105); Ionized Calcium (POC) 1.11 mmol/L (1.11-1.31); Potassium 3.7 mmol/L (3.5-4.9); Sodium 139 mmol/L (138-146)
== END 2023-11-16 12:46 | disposition home or self-care (01) ==
LOC: ANHLAB 12:48
PROVIDERS: PCP Family Medicine; Visit Provider Internal Medicine Hematology & Oncology
DX: D72.829 Elevated white blood cell count, unspecified (principal)
CPT/HCPCS: 36415; 80047; 85025

== ENCOUNTER 2024-04-19 14:00 | Outpatient (CLI) | payer OTHER, SELFPAY ==
--- NOTE | ~2024-04-19 | MM_ITS ---
EXAMINATION: MM screening [facility] BI w karl HISTORY: Screening TECHNIQUE: Craniocaudal and mediolateral oblique 3-D tomosynthesis images were obtained and synthetic 2-D images were generated. CAD analysis was submitted and interpreted. COMPARISON: Comparison to multiple prior studies sequentially, with oldest reviewed study dated 09/2021. BREAST PARENCHYMAL COMPOSITION: Not dense: There are scattered areas of fibroglandular density. FINDINGS: There are benign-appearing breast calcifications. There is a new small mass in the lower in ner quadrant of the left breast, middle third. The right breast is stable without evidence for malign jose miguel. IMPRESSION: 1. New small left breast mass, lower inner quadrant, middle third. 2. Additional mammographic views and possible breast ultrasound are recommended. BI-RADS Category 0: Incomplete: Needs additional imaging evaluation. Reviewed, dictated and finalized at location A. ERCIAL MANAGER IMPRESSION: 1. New small left breast mass, lower inner quadrant, middle third. 2. Additional mammographic views and possible breast ultrasound are recommended . BI-RADS Category 0: Incomplete: Needs additional imaging evaluation.
== END 2024-04-19 14:01 | disposition home or self-care (01) ==
LOC: MICIMG 14:06
PROVIDERS: PCP Nurse Practitioner Family; Visit Provider Nurse Practitioner Family
DX: Z12.39 Encounter for other screening for malignant neoplasm of breast (principal); R91.8 Other nonspecific abnormal finding of lung field
CPT/HCPCS: 77063; 77067

== ENCOUNTER 2024-05-21 12:54 | Outpatient (CLI) | payer OTHER, SELFPAY ==
[2024-05-21 13:08] LABS: Basophils Absolute Auto 0.1 K/mm3 (0.0-0.1); Eosinophils Absolute Auto 0.7 K/mm3 (0-0.3); Eosinophils Percent Auto 6.3 % (0-4.4); Hematocrit 43.6 % (37.0-47.0); Hemoglobin 13.9 g/dL (12.0-15.0); Immature Granulocyte Absolute 0.05 K/mm3 (0.00-0.031); Immature Granulocyte Percent A 0.4 % (0-0.5); Lymphocytes Absolute Auto 2.81 K/mm3 (0.9-3.2); Lymphocytes Percent Auto 25.1 % (18.3-44.2); Mean Corpuscular HGB Conc 31.9 g/dl (32-36); Mean Corpuscular Hemoglobin 26.4 pg (26-34); Mean Corpuscular Volume 82.7 fl (80-100); Mean Platelet Volume 11.5 fl (7.4-10.4); Monocytes Absolute Auto 0.7 K/mm3 (0.1-0.6); Monocytes Percent Auto 6.3 % (2.6-8.5); Neutrophils Absolute Auto 6.8 K/mm3 (1.3-6.7); Neutrophils Percent Auto 60.9 % (45.5-73.1); Platelet Count Result 271 k/mm3 (150-375); Red Blood Count 5.27 M/mm3 (4.2-5.4); Red Cell Distribution Width 16.3 % (11.5-14.5); White Blood Count 11.2 K/mm3 (4.5-10.0)
[2024-05-21 13:11] LABS: Blood Urea Nitrogen 14 mg/dL (8-26); Carbon Dioxide 29 mmol/L (22-30); Chloride 101 mmol/L (98-109); Estimated Glomerular Filt Rate > 60; Glucose 93 mg/dL (70-105); Ionized Calcium (POC) 1.17 mmol/L (1.11-1.31); Potassium 4.3 mmol/L (3.5-4.9); Sodium 139 mmol/L (138-146)
== END 2024-05-21 12:55 | disposition home or self-care (01) ==
LOC: ANHLAB 12:55
PROVIDERS: PCP Nurse Practitioner Family; Visit Provider Internal Medicine Hematology & Oncology
DX: D72.829 Elevated white blood cell count, unspecified (principal)
CPT/HCPCS: 36415; 80047; 85025

== ENCOUNTER 2024-05-24 07:41 | Outpatient (CLI) | payer OTHER, SELFPAY ==
--- NOTE | ~2024-05-24 | MMUS_ITS ---
EXAMINATION: MM diagnostic mildred LT w karl, US breast LT limited HISTORY: 53-year-old woman presents for diagnostic evaluation of a new small left breast mass, lower inner quadrant, middle third detected on screening mammography dated 04/19/2024. TECHNIQUE: Additional 3-D tomosynthesis images of the left breast were performed and synthetic 2-D im ages were generated. CAD analysis was submitted and interpreted. High resolution limited left breast ultrasound was performed. COMPARISON: 04/19/2024 and dating back to 11/24/2021 BREAST PARENCHYMAL COMPOSITION: Not Dense. There are scattered areas of fibroglandular density. FINDINGS: MAMMOGRAPHIC FINDINGS: The asymmetry within the lower inner left breast persists with spot compression for which focused ult rasound will be performed. This area demonstrates smooth aragon and otherwise benign features and measures 3.9 mm in greatest dim ension. ULTRASOUND: At the 9:00 position of the left breast approximately 6 cm from the nipple is a well-circumscribed, a nechoic, avascular, nonshadowing focus measuring 3.9 x 2.6 x 3.2 mm, consistent with a simple cyst fo r which no further follow-up is needed. Sonographic evaluation of the remainder of the lower inner quadrant of the left breast demonstrates b enign fibroglandular elements without a cystic or solid lesion of concern. IMPRESSION: No mammographic/tomographic or sonographic evidence to suggest the presence of malignancy. BI-RADS Category 2: Benign finding(s). Resumption of yearly screening mammography is recommended, and will be relayed to the patient. Reviewed, dictated and finalized at location A. SHOP SERVICE TECHNICIAN IMPRESSION: No mammographic/tomographic or sonographic evidence to suggest the presence of malignancy. BI-RADS Category 2: Benign finding(s). Resumption of yearly screening mammography is recommended, and will be relayed to the patient.
== END 2024-05-24 07:42 | disposition home or self-care (01) ==
LOC: MICIMG 07:42
PROVIDERS: PCP Nurse Practitioner Family; Visit Provider Nurse Practitioner Family
DX: N63.24 Unspecified lump in the left breast, lower inner quadrant (principal)
CPT/HCPCS: 76642; 77061; 77065; G0279

== ENCOUNTER 2024-07-08 15:24 | Outpatient (CLI) | payer OTHER, SELFPAY ==
--- NOTE | ~2024-07-08 | XR_ITS ---
Lumbosacral Spine: AP, oblique, and lateral views Clinical History: Pain Findings: The normal lordotic curve is maintained. No acute fracture seen. There are L5 pars interart icularis defects. There is 12 mm anterolisthesis of L5 over S1. There is severe facet arthropathy at L4-L5 and L5-S1. There is advanced degenerative tearing at L5-S1. There is mild degenerative change a t the remaining lumbar levels. The sacroiliac joints are normally outlined. Impression: 12 mm anterolisthesis of L5 over S1 with associated L5 pars interarticularis defects. Severe degenerative spondylosis of the lower lumbar spine, as above. Reviewed, dictated and finalized at location M. Impression: 12 mm anterolisthesis of L5 over S1 with associated L5 pars interarticularis de fects. Severe degenerative spondylosis of the lower lumbar spine, as above.
--- NOTE | ~2024-07-08 | XR_ITS ---
Thoracic spine: Clinical Indication: Back pain AP and lateral views were performed. No fracture is seen. There is normal alignment of the vertebrae. There is moderate to advanced degen erative disc narrowing at the midportion of the thoracic spine. Paravertebral soft tissues appear nor mal. Impression: Degenerative disc narrowing, as above. Reviewed, dictated and finalized at location . Impression: Degenerative disc narrowing, as above.
== END 2024-07-08 15:25 | disposition home or self-care (01) ==
LOC: MICIMG 15:26
PROVIDERS: PCP Family Medicine; Visit Provider Nurse Practitioner Family
DX: M47.896 Other spondylosis, lumbar region (principal)
CPT/HCPCS: 72072; 72110

== ENCOUNTER 2024-11-26 14:48 | Outpatient (CLI) | payer OTHER, SELFPAY ==
--- NOTE | ~2024-11-26 | XR_ITS ---
XR lumbar spine 2-3V Indication: Spondylolisthesis, site unspecified Comparison: None Findings: Grade 1 anterolisthesis of L4 on L5 grade 1 retrolisthesis L2 on L3, no fracture identified. Grade 1 anterolisthesis of L5 on S1. No fracture is identified, no subluxation with flexion and extension Moderate loss of disc height L5-S1. Soft tissues unremarkable Impression: No acute abnormality. Reviewed, dictated and finalized at location A. Impression: No acute abnormality.
== END 2024-11-26 14:49 | disposition home or self-care (01) ==
PROVIDERS: PCP Family Medicine; Visit Provider Physician Assistant
DX: M43.10 Spondylolisthesis, site unspecified (principal)
CPT/HCPCS: 72100

== ENCOUNTER 2024-12-10 08:22 | Outpatient (CLI) | payer OTHER, SELFPAY ==
--- NOTE | ~2024-12-10 | MR_ITS ---
EXAMINATION: MR lumbar spine shruthi burt, 12/10/2024 8:30 CDT HISTORY: Lumbar radicular pain COMPARISON: None TECHNIQUE: Multi-planar multi-sequence images were obtained of the lumbar spine without contrast per protocol. FINDINGS: Grade 1 anterolisthesis of L5 on S1 with bilateral spondylolytic defects. Grade 1 retrolisthesis of L2 on L3. The vertebral heights are intact. Marrow signal is appropriate. Posterior alignment is otherwise intact. No abnormal signal in the remaining visualized posterior elements Conus terminates at T12-L1, no abnormal signal within the cord There is severe loss of disc height at L5-S1 with disc desiccation and endplate degenerative changes The soft tissues are unremarkable L5-S1: Circumferential bulging of the disc with ligamentum flavum and facet hypertrophy. Severe bilateral foramina and lateral recess stenosis, no canal stenosis. There is asymmetric left-sided facet hypertrophy noted at this level. L4-5: Circumferential bulging of the disc with ligamentum flavum and facet hypertrophy. Producing moderate to severe bilateral foramina and lateral recess stenosis. Mild canal stenosis. L3-4: No canal or foraminal stenosis L2-3: Circumferential bulging of the disc with mild foraminal but no canal stenosis. L1-L2: No canal or foraminal stenosis IMPRESSION: Degenerative changes most marked at L5-S1 Reviewed, dictated and finalized at location A.
== END 2024-12-10 08:23 | disposition home or self-care (01) ==
LOC: MICIMG 08:22
PROVIDERS: PCP Family Medicine; Visit Provider Physician Assistant
DX: M54.16 Radiculopathy, lumbar region (principal); M51.379 Other intervertebral disc degeneration, lumbosacral region without mention of lumbar back pain or lower extremity pain
CPT/HCPCS: 72148

== ENCOUNTER 2025-02-24 10:30 | Outpatient (CLI) | payer OTHER, SELFPAY ==
[2025-02-24 11:37] LABS: Hematocrit 42.7 % (37.0-47.0); Hemoglobin 13.6 g/dL (12.0-15.0); Immature Granulocyte Percent A 0.6 % (0-0.5); Lymphocytes Absolute Auto 3.57 K/mm3 (0.9-3.2); Mean Corpuscular HGB Conc 31.9 g/dl (32-36); Mean Corpuscular Hemoglobin 26.8 pg (26-34); Mean Corpuscular Volume 84.1 fl (80-100); Nucleated Red Blood Cells Absolute Auto 0.000 K/mm3 (0.0-0.012); Nucleated Red Blood Cells Perc 0.0 % (0.0-0.2); Platelet Count Result 247 k/mm3 (150-375); Red Blood Count 5.08 M/mm3 (4.2-5.4); White Blood Count 12.7 K/mm3 (4.5-10.0)
[2025-02-24 11:42] LABS: Blood Urea Nitrogen 20 mg/dL (8-26); Carbon Dioxide 27 mmol/L (22-30); Chloride 102 mmol/L (98-109); Estimated Glomerular Filt Rate > 60; Glucose 81 mg/dL (70-105); Ionized Calcium (POC) 1.12 mmol/L (1.11-1.31); Potassium 3.9 mmol/L (3.5-4.9); Sodium 138 mmol/L (138-146)
== END 2025-02-24 10:31 | disposition home or self-care (01) ==
LOC: ANHLAB 10:31
PROVIDERS: PCP Family Medicine; Visit Provider Internal Medicine Hematology & Oncology
DX: D72.829 Elevated white blood cell count, unspecified (principal)
CPT/HCPCS: 36415; 80047; 85025